=== PATIENT | female | born 1980 | race Hispanic/Latino ===

== ENCOUNTER 2018-08-14 14:21 | Emergency (ER) | payer SELFPAY ==
[2018-08-14] MEDS ORDERED: METHYLPREDNISOLONE 125 MG INJ ONE (20:27)
[2018-08-14] MEDS ORDERED: DIPHENHYDRAMINE 25 MG TAB/CAP ONE (20:28)
[2018-08-14] MEDS ORDERED: FAMOTIDINE 20 MG TAB ONE (20:28)
[2018-08-14] MEDS ORDERED: IBUPROFEN 200 MG TAB PO ONE (21:20)
[2018-08-14] MEDS ORDERED: IBUPROFEN 400 MG TAB ONE (21:20)
--- NOTE | 2018-08-14 21:36 | ER ---
Nurse's Notes [facility] Name: Shanna Abraham Age: 37 yrs Sex: Female : 1980 Arrival Date: 08/14/2018 Time: 14:23 Bed 9 Private MD: None, None Diagnosis: Rash and other nonspecific skin eruption Presentation: 08/14 14:54 Presenting complaint: Patient states: Rash that started yesterday. Pt is unsure if it ss is from playing outside with children, or if it from the antibiotics she recently finished taking. Transition of care: patient was not received from another setting of care. Onset of symptoms was August 13, 2018. Risk Assessment: Do you want to hurt yourself or someone else? Patient reports no desire to harm self or others. Initial Sepsis Screen: Does the patient meet any 2 criteria? No. Patient's initial sepsis screen is negative. Does the patient have a suspected source of infection? No. Patient's initial sepsis screen is negative. Care prior to arrival: None. 14:54 Method Of Arrival: Ambulatory ss 14:54 Acuity: EFRA 5 ss Historical: - Allergies: 14:55 No Known Allergies; ss - PSHx: 14:55 nose sx; breast augmentation; ss - Immunization history:: Adult Immunizations up to date. - Social history:: Smoking status: Patient/guardian denies using tobacco. - Ebola Screening: : Patient denies exposure to infectious person Patient denies travel to an Ebola-affected area in the 21 days before illness onset. Screenin:36 Abuse screen: Denies threats or abuse. Denies injuries from another. Nutritional lp1 screening: No deficits noted. Tuberculosis screening: No symptoms or risk factors identified. Fall Risk None identified. Assessment: 19:30 General: Appears uncomfortable, Behavior is appropriate for age. Pain: Complains of lp1 pain in generalized. Neuro: No deficits noted. Cardiovascular: Patient's skin is warm and dry. Respiratory: Respiratory effort is even, unlabored, Breath sounds are clear bilaterally. GI: No deficits noted. : No deficits noted. EENT: No deficits noted. Derm: Rash noted that is itchy, red, on to generalized body. Musculoskeletal: No deficits noted. 21:15 Reassessment: Patient complaint of continued headache; Provider aware. lp1 22:32 Reassessment: Patient is alert, oriented x 3, equal unlabored respirations, skin lp1 warm/dry/pink. Patient states feeling better. Patient states symptoms have improved. Vital Signs: 14:55 BP 117 / 89; Pulse 102; Resp 16; Temp 99.8(TE); Pulse Ox 98% on R/A; Weight 54.43 kg; ss Height 5 ft. 7 in. (170.18 cm); Pain 8/10; 20:35 Pulse 89; Resp 18; Temp 100.1(O); Pulse Ox 100% on R/A; lp1 22:33 BP 112 / 69; Pulse 83; Resp 16; Temp 97.7(O); Pulse Ox 97% on R/A; Pain 0/10; lp1 14:55 Body Mass Index 18.79 (54.43 kg, 170.18 cm) ss ED Course: 14:23 Patient arrived in ED. mr 14:23 None, None is Private Physician. mr 14:55 Triage completed. ss 14:55 Arm band placed on right wrist. ss 19:23 Shanna Garcia, RN is Primary Nurse. lp1 19:44 Sarita Alfredo FNP-C is [facility]. kb 19:46 Florentin Mishra MD is Attending Physician. kb 20:35 Flu and/or RSV swab sent to lab. Strep swab sent to lab. lp1 20:36 Patient has correct armband on for positive identification. lp1 20:36 No provider procedures requiring assistance completed. Patient did not have IV access lp1 during this emergency room visit. Administered Medications: 20:34 Drug: Pepcid 20 mg Route: PO; lp1 21:43 Follow up: Response: No adverse reaction lp1 20:34 Drug: Benadryl 25 mg Route: PO; lp1 21:43 Follow up: Response: No adverse reaction lp1 20:34 Drug: SOLU-Medrol 125 mg Route: IM; Site: right deltoid; lp1 21:43 Follow up: Response: No adverse reaction lp1 21:16 Drug: Motrin 600 mg Route: PO; lp1 22:33 Follow up: Response: Temperature is decreased lp1 21:30 Drug: [place] (7.5 mg-325 mg) 1 tabs Route: PO; lp1 22:34 Follow up: Response: Pain is decreased lp1 Outcome: 21:35 Discharge ordered by . kb 22:33 Discharged to home ambulatory, with family. lp1 22:33 Condition: good 22:33 Discharge instructions given to patient, significant other, Instructed on discharge instructions, follow up and referral plans. medication usage, Demonstrated understanding of instructions, follow-up care, medications, Prescriptions given X 2. 22:34 Patient left the ED. lp1 Signatures: Sarita Alfredo, TATA SAMUEL-Soraida Miranda mr Leni Mcmahon, TAMMY RN Shanna Garcia, TAMMY RN lp1
--- NOTE | 2018-08-14 21:36 | EDPHYS ---
Physician Documentation [facility] Name: Shanna Abraham Age: 37 yrs Sex: Female : 1980 Arrival Date: 08/14/2018 Time: 14:23 Bed 9 Private MD: None, None ED Physician Florentin Mishra HPI: 08/14 21:33 This 37 yrs old Female presents to ER via Ambulatory with complaints of Rash. kb 21:33 The patient's rash thought to be caused by an unknown cause. The rash is located on the kb body diffusely. The rash can be described as macular, papular. Onset: The symptoms/episode began/occurred this morning. Associated signs and symptoms: Pertinent positives: itching, Pertinent negatives: burning sensation, difficulty breathing, fever, nausea, Pain swelling of lips, swelling of throat, swelling of tongue, vomiting, wheezing. Severity of symptoms: At their worst the symptoms were moderate in the emergency department the symptoms are unchanged. The patient has not experienced similar symptoms in the past. The patient has not recently seen a physician. Pt reports rash that started this morning and isn't sure if it is from playing in the grass or from antibiotics that she completed 2 days ago. Reports itching. Also c/o headache that started today. reports pt has swelling to face this morning, but it has gotten better. . Historical: - Allergies: 14:55 No Known Allergies; ss - PSHx: 14:55 nose sx; breast augmentation; ss - Immunization history:: Adult Immunizations up to date. - Social history:: Smoking status: Patient/guardian denies using tobacco. - Ebola Screening: : Patient denies exposure to infectious person Patient denies travel to an Ebola-affected area in the 21 days before illness onset. ROS: 21:28 Constitutional: Negative for fever, chills, and weight loss, Cardiovascular: Negative kb for chest pain, palpitations, and edema, Respiratory: Negative for shortness of breath, cough, wheezing, and pleuritic chest pain, Abdomen/GI: Negative for abdominal pain, nausea, vomiting, diarrhea, and constipation, Back: Negative for injury and pain, MS/Extremity: Negative for injury and deformity. 21:28 Skin: Positive for rash. 21:28 Neuro: Positive for headache. Exam: 21:28 Constitutional: This is a well developed, well nourished patient who is awake, alert, kb and in no acute distress. Head/Face: Normocephalic, atraumatic. Neck: Trachea midline, no thyromegaly or masses palpated, and no cervical lymphadenopathy. Supple, full range of motion without nuchal rigidity, or vertebral point tenderness. No Meningismus. Chest/axilla: Normal chest wall appearance and motion. Nontender with no deformity. No lesions are appreciated. Cardiovascular: Regular rate and rhythm with a normal S1 and S2. No gallops, murmurs, or rubs. Normal PMI, no JVD. No pulse deficits. Respiratory: Lungs have equal breath sounds bilaterally, clear to auscultation and percussion. No rales, rhonchi or wheezes noted. No increased work of breathing, no retractions or nasal flaring. Abdomen/GI: Soft, non-tender, with normal bowel sounds. No distension or tympany. No guarding or rebound. No evidence of tenderness throughout. MS/ Extremity: Pulses equal, no cyanosis. Neurovascular intact. Full, normal range of motion. Neuro: Awake and alert, GCS 15, oriented to person, place, time, and situation. Cranial nerves II-XII grossly intact. Motor strength 5/5 in all extremities. Sensory grossly intact. Cerebellar exam normal. Normal gait. 21:28 Skin: rash can be described as macular, papular, and is diffusely located. Vital Signs: 14:55 BP 117 / 89; Pulse 102; Resp 16; Temp 99.8(TE); Pulse Ox 98% on R/A; Weight 54.43 kg; ss Height 5 ft. 7 in. (170.18 cm); Pain 8/10; 20:35 Pulse 89; Resp 18; Temp 100.1(O); Pulse Ox 100% on R/A; lp1 22:33 BP 112 / 69; Pulse 83; Resp 16; Temp 97.7(O); Pulse Ox 97% on R/A; Pain 0/10; lp1 14:55 Body Mass Index 18.79 (54.43 kg, 170.18 cm) MDM: 19:46 Patient medically screened. kb 21:27 Data reviewed: vital signs, nurses notes. Data interpreted: Pulse oximetry: on room air kb is 100 %. Interpretation: normal. Counseling: I had a detailed discussion with the patient and/or guardian regarding: the historical points, exam findings, and any diagnostic results supporting the discharge/admit diagnosis, lab results, the need for outpatient follow up, a family practitioner, to return to the emergency department if symptoms worsen or persist or if there are any questions or concerns that arise at home. 08/14 20:00 Order name: Flu; Complete Time: 21:12 kb 08/14 20:00 Order name: Strep; Complete Time: 20:54 kb 08/14 20:53 Order name: Throat Culture EDMS Administered Medications: 20:34 Drug: Pepcid 20 mg Route: PO; lp1 21:43 Follow up: Response: No adverse reaction lp1 20:34 Drug: Benadryl 25 mg Route: PO; lp1 21:43 Follow up: Response: No adverse reaction lp1 20:34 Drug: SOLU-Medrol 125 mg Route: IM; Site: right deltoid; lp1 21:43 Follow up: Response: No adverse reaction lp1 21:16 Drug: Motrin 600 mg Route: PO; lp1 22:33 Follow up: Response: Temperature is decreased lp1 21:30 Drug: [place] (7.5 mg-325 mg) 1 tabs Route: PO; lp1 22:34 Follow up: Response: Pain is decreased lp1 Disposition: 08/15 06:19 Co-signature as Attending Physician, Florentin Mishra MD I agree with the assessment and leonel plan of care. Disposition: 08/14/18 21:35 Discharged to Home. Impression: Rash and other nonspecific skin eruption. - Condition is Stable. - Discharge Instructions: Rash, [id number]. - Prescriptions for Pepcid 20 mg Oral Tablet - take 1 tablet by ORAL route every 12 hours for 5 days; 10 tablet. Prednisone 20 mg Oral Tablet - take 1 tablet by ORAL route once daily for 5 days; 5 tablet. - Medication Reconciliation Form, Thank You Letter, Antibiotic Education, Prescription Opioid Use form. - Follow up: Emergency Department; When: As needed; Reason: Worsening of condition. Follow up: Private Physician; When: 2 - 3 days; Reason: Recheck today's complaints, Continuance of care, Re-evaluation by your physician. Signatures: Dispatcher [employer] EDSarita Nguyen, LIZZIE-Farhana SAMUEL-Florentin Gardner MD MD cha Smirch Leni, RN RN ss Shanna Garcia RN RN lp1 Corrections: (The following items were deleted from the chart) 08/14 22:34 21:35 08/14/2018 21:35 Discharged to Home. Impression: Rash and other nonspecific skin lp1 eruption. Condition is Stable. Forms are Medication Reconciliation Form, Thank You Letter, Antibiotic Education, Prescription Opioid Use. Follow up: Emergency Department; When: As needed; Reason: Worsening of condition. Follow up: Private Physician; When: 2 - 3 days; Reason: Recheck today's complaints, Continuance of care, Re-evaluation by your physician. kb
[2018-08-14] MEDS ORDERED: HYDROCODONE/APAP 7.5/325 MG TAB ONE (21:37)
== END 2018-08-14 22:34 | disposition home or self-care (01) ==
LOC: ER 14:21
DX: R21 Rash and other nonspecific skin eruption (principal)
CPT/HCPCS: 87070; 87081; 87804; 96372; 99283; J2930